=== PATIENT | female | born 1985 | race African-American/Black ===

== ENCOUNTER 2025-05-05 18:51 | Emergency (ER) | payer SELFPAY ==
[~2025-05-05] VITALS: Ht 175.3 cm; Wt 91.0 kg
[2025-05-05 18:55] VITALS: BP 153/90; PULSE 99; RESP 16; TEMP 37.3; O2SAT 98
== END 2025-05-05 21:25 | disposition left against medical advice (07) ==
LOC: ER 18:51
DX: T65.91XA Toxic effect of unspecified substance, accidental (unintentional), initial encounter (principal); Z53.21 Procedure and treatment not carried out due to patient leaving prior to being seen by health care provider; X58.XXXA Exposure to other specified factors, initial encounter